=== PATIENT | female | born 1930 | race American Indian/Alaskan Native ===

== ENCOUNTER 2016-06-11 09:14 | Day surgery (SDC) | payer MEDICARE ==
[2016-05-28 10:36] VITALS: BMI 16.9
[2016-06-11] MEDS ORDERED: cefTRIAXone (Rocephin) 1 gm Inj ONE (12:49)
[2016-06-11] MEDS ORDERED: Propofol 10 mg/ml Inj (20 ML) ONE (12:51)
[2016-06-11] MEDS ORDERED: Midazolam 2 MG/2 ML VIAL ONE (12:51)
[2016-06-11] MEDS ORDERED: ePHEDrine 50 mg/ml Inj ONE (13:22)
[2016-06-11] MEDS ORDERED: Sevoflurane - Inhalation Anesthetic Liq (250 ml) ONE (13:44)
[2016-06-11] MEDS ORDERED: Lactated Ringer's 1,000 ML IV SCH (14:30)
--- NOTE | 2016-06-11 14:38 | OP ---
PROCEDURE DATE: 06/11/2016 PREOPERATIVE DIAGNOSIS: Multiple bladder calculi. POSTOPERATIVE DIAGNOSIS: Multiple bladder calculi. PROCEDURE: Cystoscopy with laser lithotripsy of bladder stone. SURGEON: Pablo Anthony MD ANESTHESIA: LMA. DESCRIPTION OF OPERATION: After adequate LMA anesthesia was given, the patient was placed in lithoto my, prepped and draped in usual manner. A 22-Indian cystourethroscope was introduced. The findings were unchanged from the previous recent cystoscopy, which showed 3 large bladder stones. We had a ho lmium laser with settings at 3 and 10, which is very high power and started to break 1 of the 3 stone s and realized these stones were extremely hard and were not breaking as quickly as one would have ex pected from such a powerful laser. I stayed with the one stone, was able to fragment it into small p ieces and irrigate them out, but it took almost an hour of time to reduce that one stone to small ryder ugh pieces. It did not break apart into small pieces as many of them do early on with initial laseri ng. The bladder was completely uninjured during the procedure. Orifices were seen. I did not do an ything to the other 2 stones. Once it was all fragmented, I then replaced the 22-Indian with a 26-Fr ench continuous flow resectoscope that I could use as an irrigant to get the pieces out. Reinspectio n of the bladder showed only a few very small fragments remaining along with the 2 untouched bladder stones. All irrigation fluid in the bladder returned. There was no evidence of any bleeding. The s tone fragments were sent for analysis. Upon initial introduction, urine was sent for culture and sen sitivity. The patient then had a 22-Indian 3-way Ca catheter inserted with the irrigant being cry stal clear. She was awakened and brought to recovery room in good condition. Pablo Atnhony MD cc: [id number] TT: 06/11/2016 14:37:36 en
[2016-06-11 15:36] VITALS: RESP 18; TEMP 97.2
[2016-06-11 16:11] VITALS: BP 122/66; PULSE 49; O2SAT 100
== END 2016-06-11 16:50 | disposition home or self-care (01) ==
LOC: SDS 09:14
PROVIDERS: ATTEND Urology
DX: N21.0 Calculus in bladder (principal); I10 Essential (primary) hypertension; Z98.49 Cataract extraction status, unspecified eye; Z98.890 Other specified postprocedural states
CPT/HCPCS: 52317; 87086; 88300; J0696; J2250; J2704; J3010; J7120